=== PATIENT | male | born 1990 | race Caucasian/White ===

== ENCOUNTER 2018-04-15 07:57 | Inpatient (IN) | payer MEDICAID ==
[2018-04-15 08:20] LABS: ADD MAN DIFF? NO
[2018-04-15 08:22] LABS: WHITE BLOOD COUNT 16.8 10^3/ul (4.8-10.8)
[2018-04-15 08:22] LABS: ABNORMAL IP MESSAGE 1; BASOPHIL # 0.1 10^3/ul (0.0-0.1); BASOPHILS % 0.5 % (0.0-2.0); EOSINOPHILS # 0.1 10^3/ul (0.0-0.5); EOSINOPHILS % 0.7 % (0.0-7.0); HEMATOCRIT 50.5 % (42.0-52.0); HEMOGLOBIN 17.1 g/dl (14.0-18.0); LYMPHOCYTES # 2.6 10^3/ul (0.8-2.9); LYMPHOCYTES % 15.3 % (15.0-51.0); MEAN CORPUSCULAR HEMOGLOBIN 29.8 pg (29.0-33.0); MEAN CORPUSCULAR HGB CONC 33.9 g/dl (32.0-37.0); MEAN CORPUSCULAR VOLUME 88.1 fl (82.0-101.0); MEAN PLATELET VOLUME 9.4 fl (7.4-10.4); MONOCYTE # 1.6 10^3/ul (0.3-0.9); MONOCYTES % 9.5 % (0.0-11.0); NEUTROPHIL # 12.3 10^3/ul (1.6-7.5); NEUTROPHILS % 73.4 % (39.0-77.0); PLATELET COUNT 375 10^3/UL (140-415); POSITIVE DIFF @See below; RED BLOOD COUNT 5.73 10^6/ul (4.70-6.10); RED CELL DISTRIBUTION WIDTH 13.1 % (11.5-14.5)
[2018-04-15] MEDS ORDERED: ONDANSETRON 4 MG INJ IV (08:30)
[2018-04-15] MEDS: SOD CHLORIDE 0.9% 1,000 ML IV (08:37)
[2018-04-15] MEDS: HYDROmorphONE 1 MG/ML SYG IV (08:37)
[2018-04-15] MEDS: ONDANSETRON 4 MG INJ IV (08:37)
[2018-04-15 08:41] LABS: INR 1.19; PROTIME 15.3 Sec (11.9-14.9); PT RATIO 1.2
[2018-04-15 08:42] LABS: ANION GAP 14 (8-16); BLOOD UREA NITROGEN 8 mg/dl (7-20); CALCIUM 9.1 mg/dl (8.4-10.2); CARBON DIOXIDE 28 mmol/L (21-31); CHLORIDE 103 mmol/L (97-110); CREATININE 0.73 mg/dl (0.61-1.24); GLUCOSE 114 mg/dl (70-220); PARTIAL THROMBOPLASTIN TIME 33.2 Sec (25.0-35.0); SODIUM 141 mmol/L (135-144)
[2018-04-15 08:53] LABS: TROPONIN-I < 0.012 ng/ml (0.000-0.120)
[2018-04-15] MEDS: APIXABAN 5 MG TABLET PO ×2 (09:02→21:30)
[2018-04-15] MEDS: FUROSEMIDE 20 MG INJ IV (14:34)
[2018-04-15] MEDS: LEVOFLOXACIN 500MG/D5W (PMX) 100 ML IVPB (14:34)
[2018-04-15] MEDS: ACETAMINOPHEN 325 MG TAB PO (14:34)
[2018-04-15 14:46] LABS: CREATINE KINASE 34 IU/L (23-200)
[2018-04-15 14:55] LABS: CK INDEX 0.6; CK-MB < 0.22 ng/ml (0.0-2.4); TROPONIN-I < 0.012 ng/ml (0.000-0.120)
[2018-04-15] MEDS: HYDROCODONE/APAP (5/325) TAB PO (17:12)
[2018-04-15] MEDS: morphine 2 MG INJ IV ×2 (17:54→21:09)
[2018-04-15 21:36] LABS: CREATINE KINASE 31 IU/L (23-200)
[2018-04-15 21:50] LABS: CK INDEX 0.7; CK-MB < 0.22 ng/ml (0.0-2.4); TROPONIN-I < 0.012 ng/ml (0.000-0.120)
[2018-04-15] MEDS: ALBUTEROL/IPRATROPIUM (NEB) 3 ML AMP HHN (22:14)
[2018-04-16] MEDS: morphine 2 MG INJ IV ×5 (02:29→20:29)
[2018-04-16 06:55] LABS: ADD MAN DIFF? NO
[2018-04-16 07:04] LABS: ABNORMAL IP MESSAGE 1; BASOPHIL # 0.1 10^3/ul (0.0-0.1); BASOPHILS % 0.6 % (0.0-2.0); EOSINOPHILS # 0.2 10^3/ul (0.0-0.5); EOSINOPHILS % 1.4 % (0.0-7.0); HEMATOCRIT 44.7 % (42.0-52.0); HEMOGLOBIN 15.1 g/dl (14.0-18.0); LYMPHOCYTES # 3.1 10^3/ul (0.8-2.9); LYMPHOCYTES % 21.4 % (15.0-51.0); MEAN CORPUSCULAR HEMOGLOBIN 29.6 pg (29.0-33.0); MEAN CORPUSCULAR HGB CONC 33.8 g/dl (32.0-37.0); MEAN CORPUSCULAR VOLUME 87.6 fl (82.0-101.0); MEAN PLATELET VOLUME 9.8 fl (7.4-10.4); MONOCYTE # 1.8 10^3/ul (0.3-0.9); MONOCYTES % 12.7 % (0.0-11.0); NEUTROPHILS % 63.4 % (39.0-77.0); PLATELET COUNT 345 10^3/UL (140-415); POSITIVE DIFF @See below; RED CELL DISTRIBUTION WIDTH 13.3 % (11.5-14.5)
[2018-04-16 07:04] LABS: WHITE BLOOD COUNT 14.3 10^3/ul (4.8-10.8)
[2018-04-16 07:39] LABS: ANION GAP 9 (8-16); BLOOD UREA NITROGEN 9 mg/dl (7-20); CALCIUM 8.6 mg/dl (8.4-10.2); CARBON DIOXIDE 27 mmol/L (21-31); CHLORIDE 105 mmol/L (97-110); CREATININE 0.69 mg/dl (0.61-1.24); GLUCOSE 93 mg/dl (70-220); MAGNESIUM 1.9 mg/dl (1.7-2.5); SODIUM 137 mmol/L (135-144)
[2018-04-16] MEDS: HYDROCODONE/APAP (5/325) TAB PO (09:49)
[2018-04-16] MEDS: APIXABAN 5 MG TABLET PO ×2 (09:49→20:30)
[2018-04-16] MEDS: SOD CHLORIDE 0.9% 100 ML (10:43)
[2018-04-16] MEDS: IOHEXOL 100 ML (10:43)
[2018-04-16] MEDS: LEVOFLOXACIN 500MG/D5W (PMX) 100 ML IVPB (13:30)
[2018-04-16 14:25] LABS: AADO2 Arterial 243.5 mmHg (7.0-24.0); Allen Test ACCEPTAB; Arterial Base Excess -0.3 mmol/L (-3.0-3); Arterial Blood Gas Oxygen Sat 97.4 mmHG (95.0-98.0); Arterial COHb 0.5 % (0.0-3.0); Arterial Fraction of Oxyhgb 96.7 % (93.0-99.0); Arterial HCO3 23.9 mmol/L (22.0-26.0); Arterial MetHb 0.2 % (0.0-1.5); Arterial Total Hemglobin 15.7 g/dl (12.0-18.0); MODE MASK - SIMPLE; Site Right Radial
[2018-04-16 23:18] LABS: AMPHETAMINE/METHAMPHETAMINE NEGATIVE (NEGATIVE); BARBITURATES NEGATIVE (NEGATIVE); BENZODIAZEPINES NEGATIVE (NEGATIVE); CANNABINOIDS POSITIVE (NEGATIVE); COCAINE NEGATIVE (NEGATIVE); OPIATES POSITIVE (NEGATIVE)
[2018-04-17] MEDS: morphine 2 MG INJ IV ×2 (01:53→12:42)
[2018-04-17 06:03] LABS: ADD MAN DIFF? NO
[2018-04-17 06:15] LABS: ABNORMAL IP MESSAGE 1; BASOPHIL # 0.1 10^3/ul (0.0-0.1); BASOPHILS % 0.7 % (0.0-2.0); EOSINOPHILS # 0.5 10^3/ul (0.0-0.5); EOSINOPHILS % 3.6 % (0.0-7.0); HEMATOCRIT 45.2 % (42.0-52.0); HEMOGLOBIN 15.4 g/dl (14.0-18.0); LYMPHOCYTES # 2.9 10^3/ul (0.8-2.9); LYMPHOCYTES % 23.6 % (15.0-51.0); MEAN CORPUSCULAR HEMOGLOBIN 29.7 pg (29.0-33.0); MEAN CORPUSCULAR HGB CONC 34.1 g/dl (32.0-37.0); MEAN CORPUSCULAR VOLUME 87.3 fl (82.0-101.0); MEAN PLATELET VOLUME 9.8 fl (7.4-10.4); MONOCYTE # 1.8 10^3/ul (0.3-0.9); MONOCYTES % 14.6 % (0.0-11.0); NEUTROPHIL # 7.1 10^3/ul (1.6-7.5); PLATELET COUNT 387 10^3/UL (140-415); POSITIVE DIFF @See below; RED BLOOD COUNT 5.18 10^6/ul (4.70-6.10); RED CELL DISTRIBUTION WIDTH 13.2 % (11.5-14.5)
[2018-04-17 06:15] LABS: WHITE BLOOD COUNT 12.4 10^3/ul (4.8-10.8)
[2018-04-17 06:24] LABS: ANION GAP 8 (8-16); BLOOD UREA NITROGEN 11 mg/dl (7-20); CALCIUM 9.1 mg/dl (8.4-10.2); CARBON DIOXIDE 31 mmol/L (21-31); CHLORIDE 103 mmol/L (97-110); CREATININE 0.75 mg/dl (0.61-1.24); GLUCOSE 103 mg/dl (70-220); SODIUM 138 mmol/L (135-144)
[2018-04-17] MEDS: APIXABAN 5 MG TABLET PO ×2 (09:00→22:21)
[2018-04-17] MEDS: LEVOFLOXACIN 500 MG TAB PO (14:53)
[2018-04-17] MEDS: NICOTINE (14 MG/24 HR) PATCH TRANSDERM (17:45)
[2018-04-18 05:37] LABS: ADD MAN DIFF? NO
[2018-04-18 05:40] LABS: WHITE BLOOD COUNT 11.8 10^3/ul (4.8-10.8)
[2018-04-18 05:40] LABS: BASOPHIL # 0.1 10^3/ul (0.0-0.1); BASOPHILS % 1.1 % (0.0-2.0); EOSINOPHILS # 0.5 10^3/ul (0.0-0.5); EOSINOPHILS % 4.1 % (0.0-7.0); HEMATOCRIT 49.2 % (42.0-52.0); HEMOGLOBIN 16.9 g/dl (14.0-18.0); LYMPHOCYTES # 2.7 10^3/ul (0.8-2.9); LYMPHOCYTES % 22.8 % (15.0-51.0); MEAN CORPUSCULAR HEMOGLOBIN 29.9 pg (29.0-33.0); MEAN CORPUSCULAR HGB CONC 34.3 g/dl (32.0-37.0); MEAN CORPUSCULAR VOLUME 86.9 fl (82.0-101.0); MEAN PLATELET VOLUME 9.5 fl (7.4-10.4); MONOCYTE # 1.5 10^3/ul (0.3-0.9); MONOCYTES % 12.5 % (0.0-11.0); NEUTROPHILS % 59.1 % (39.0-77.0); PLATELET COUNT 418 10^3/UL (140-415); RED BLOOD COUNT 5.66 10^6/ul (4.70-6.10); RED CELL DISTRIBUTION WIDTH 12.8 % (11.5-14.5)
[2018-04-18] MEDS: LEVOFLOXACIN 500 MG TAB PO (05:45)
[2018-04-18 05:58] LABS: ANION GAP 12 (8-16); BLOOD UREA NITROGEN 12 mg/dl (7-20); CALCIUM 9.4 mg/dl (8.4-10.2); CARBON DIOXIDE 28 mmol/L (21-31); CHLORIDE 105 mmol/L (97-110); CREATININE 0.73 mg/dl (0.61-1.24); GLUCOSE 101 mg/dl (70-220); POTASSIUM 4.3 mmol/L (3.5-5.1); SODIUM 141 mmol/L (135-144)
[2018-04-18] MEDS: NICOTINE (14 MG/24 HR) PATCH TRANSDERM (09:00)
[2018-04-18] MEDS: APIXABAN 5 MG TABLET PO (09:49)
== END 2018-04-18 09:55 | disposition home or self-care (01) | DRG 175 ==
LOC: E/R 07:57 → TEL 08:29
DX: I26.99 Other pulmonary embolism without acute cor pulmonale (principal); J96.91 Respiratory failure, unspecified with hypoxia; J18.9 Pneumonia, unspecified organism; J90 Pleural effusion, not elsewhere classified; J98.11 Atelectasis; Z86.718 Personal history of other venous thrombosis and embolism; E66.9 Obesity, unspecified; Z68.36 Body mass index [BMI] 36.0-36.9, adult; Z98.1 Arthrodesis status; F17.200 Nicotine dependence, unspecified, uncomplicated; Z87.81 Personal history of (healed) traumatic fracture; Z72.3 Lack of physical exercise
CPT/HCPCS: 36415; 36600; 71045; 71275; 80048; 80307; 82550; 82553; 82803; 83735; 84484; 85025; 85610; 85730; 93005; 93306; 93970; 94664; 99291-25